=== PATIENT | male | born 1995 | race African-American/Black ===

== ENCOUNTER 2018-02-08 17:55 | Emergency (ER) | payer SELFPAY ==
--- NOTE | 2018-02-08 18:04 | PDOC ---
Rapid Medical Evaluation Time Seen by Provider: 02/08/18 18:03 Medical Evaluation: 02/08/18 18:04 Healthy 22 year old male with 2 months of worsening throat pain, painful swallowing, bilat ear pain. Symptoms worse over past 4 days. No fevers/chills. Alert, oriented, no distress. Voice slightly muffled, no drooling or stridor. Tonsils enlarged without exudates. + Cervical adenopathy. -Rapid strep -Monospot -to FT for further evaluation
[2018-02-08 18:07] VITALS: BP 133/71; PULSE 84; TEMP 98.7; BMI 31.3
--- NOTE | 2018-02-08 18:51 | PDOC ---
History of Present Illness - General Chief Complaint: Cold Symptoms Stated Complaint: COLD SYMPTOMS Time Seen by Provider: 02/08/18 18:03 History Source: Patient Exam Limitations: No Limitations - History of Present Illness Initial Comments: 02/08/18 18:45 Best Contact: PCP: None Pmhx: N/A Pshx: N/A Allergies: NKDA 2 marijuana cigarettes daily Patient alcohol 22-year-old male presents to the ER complaining of sore throat and right ear clogged 1 month. Patient denies fever, chills, nausea/vomiting, facial pain, rhinnorhea, diff swallowing, neck stiffness/pain, back pain, cp, sob, abd pain, flank pain. Patient states he's taken Tylenol in the past with relief. Patient states he's been eating and drinking without any difficulties Past History - Past Medical History Allergies/Adverse Reactions: Allergies Allergy/AdvReac Type Severity Reaction Status Date / Time No Known Allergies Allergy Verified 02/08/18 18:04 Home Medications: Ambulatory Orders NK [No Known Home Medication] 02/08/18 COPD: No Other medical history: DENIES. - Suicide/Smoking/Psychosocial Hx Smoking History: Never smoked Review of Systems - Review of Systems Able to Perform ROS?: Yes Comments:: 02/08/18 18:49 CONSTITUTIONAL: Absent: fever, chills, diaphoresis, generalized weakness, malaise, loss of appetite HEENT: +sore throat +Right ear clogged sensation Absent: rhinorrhea, nasal congestion, throat pain, throat swelling, difficulty swallowing, mouth swelling, ear pain, eye pain, visual Changes CARDIOVASCULAR: Absent: chest pain, loss of consciousness, palpitations, irregular heart rate, peripheral edema RESPIRATORY: Absent: cough, shortness of breath, dyspnea with exertion, orthopnea, wheezing, stridor, hemoptysis GASTROINTESTINAL: Absent: abdominal pain, abdominal distension, nausea, vomiting, diarrhea, constipation, melena, hematochezia GENITOURINARY: Absent: dysuria, frequency, urgency, hesitancy, hematuria, flank pain, genital pain MUSCULOSKELETAL: Absent: myalgia, arthralgia, joint swelling SKIN: Absent: rash, itching, pallor HEMATOLOGIC/IMMUNOLOGIC: Absent: easy bleeding, easy bruising, lymphadenopathy, frequent infections ENDOCRINE: Absent: unexplained weight gain, unexplained weight loss, heat intolerance, cold intolerance NEUROLOGIC: Absent: headache, focal weakness or paresthesias, dizziness, unsteady gait, seizure, mental status changes, bladder or bowel incontinence PSYCHIATRIC: Absent: anxiety, depression, suicidal or homicidal ideation, hallucinations. Is the patient limited French proficient: No *Physical Exam - Vital Signs Last Vital Signs Temp Pulse Resp BP Pulse Ox 98.7 F 84 19 133/71 98 02/08/18 18:04 02/08/18 18:04 02/08/18 18:04 02/08/18 18:04 02/08/18 18:04 Moderate Sedation - Procedure Monitoring Vital Signs: Vital Signs Temp Pulse Resp BP Pulse Ox 98.7 F 84 19 133/71 98 02/08/18 18:04 02/08/18 18:04 02/08/18 18:04 02/08/18 18:04 02/08/18 18:04 ED Treatment Course - ADDITIONAL ORDERS Additional order review: 02/08/18 18:00 Group A Strep Rapid Antigen - Preliminary Throat *DC/Admit/Observation/Transfer Diagnosis at time of Disposition: Viral pharyngitis - Discharge Dispostion Disposition: HOME Condition at time of disposition: Stable Decision to Admit order: No - Referrals Referrals: Taj Herrera MD [Staff Physician] - - Patient Instructions Printed Discharge Instructions: DI for Viral Pharyngitis Additional Instructions: Increase fluids Follow with saltwater Follow-up with the ENT specialist Return back to the ER for any concerns - Post Discharge Activity
== END 2018-02-08 18:56 | disposition home or self-care (01) ==
LOC: JERFT 17:55
DX: J02.9 Acute pharyngitis, unspecified (principal)
CPT/HCPCS: 36415; 86308; 87070; 87430; 99281-25